=== PATIENT | male | born 1960 | race Two or more races ===

== ENCOUNTER 2017-12-26 11:43 | Emergency (ER) | payer MEDICAID ==
[~2017-12-26] VITALS: Ht 175.3 cm; Wt 99.6 kg
[2017-12-26 12:25] VITALS: BP 122/77; Ht 175.3 cm; Wt 99.6 kg
== END 2017-12-26 14:50 | disposition home or self-care (01) ==
LOC: ED 11:43
DX: M54.5 Low back pain (principal)
CPT/HCPCS: J1885; J2270